=== PATIENT | male | born 1945 | race Caucasian/White ===

== ENCOUNTER 2018-10-27 08:39 | Inpatient (IN) | payer OTHER ==
[2018-10-13 09:21] LABS: URINE BILIRUBIN NEGATIVE (Negative); URINE BLOOD NEGATIVE (Negative); URINE CLARITY CLEAR; URINE COLOR YELLOW; URINE GLUCOSE-RANDOM* NEGATIVE (Negative); URINE KETONES NEGATIVE (Negative); URINE LEUKOCYTES-REFLEX NEGATIVE (Negative); URINE NITRITE-REFLEX NEGATIVE (Negative); URINE PROTEIN (DIPSTICK) NEGATIVE (Negative); URINE SPECIFIC GRAVITY <= 1.005 (1.005-1.035); URINE UROBILINOGEN 0.2 E.U./dl (0.2-1.0)
[2018-10-13 09:23] LABS: HEMOGLOBIN 14.5 gm/dL (14.0-18.0); MCHC 34.5 g/dL (28.0-37.0); MCV 89.9 fL (80.0-100.0); RBC 4.67 mil/uL (4.50-6.00); RDW 13.7 % (10.5-14.5); WBC 4.3 thou/uL (4.0-11.0)
[2018-10-13 09:28] LABS: ALBUMIN 4.1 g/dL (3.4-5.0); CALCIUM 9.1 mg/dL (8.5-10.1); CREATININE 0.7 mg/dL (0.7-1.3); POTASSIUM 4.6 mmol/L (3.5-5.1)
[2018-10-13 09:33] LABS: PROTIME 10.4 Seconds (9.3-11.4)
[2018-10-14 00:09] LABS: GLYCOHEMOGLOBIN (HGB A1C) 6.4 % (4.8-5.6)
--- NOTE | 2018-10-14 08:30 | EKG ---
[address] [address] ELECTROCARDIOGRAM REPORT Name: JACOB MCNAMARA Room #: [facility]#: [id number] ������������������ Admission: ������������������ Attend Phys: Harvey Araujo MD Discharge: ������������������ Date of : 47 Report #: [id number] ����������������������������������������������������������������� [id number] THIS REPORT FOR: //name// [facility] Test Date: 2018-10-13 Test Time: 09:19:49 Pat Name: JACOB MCNAMARA Department: Room: Gender: Beater Out: jesús : 1945 Requested By: Harvey Araujo Order Number: [id number] : Derrick Ayala Measurements Intervals Harrison Rate: 57 P: 61 VA: 175 QRS: 71 QRSD: 101 T: 61 QT: 424 QTc: 413 Interpretive Statements Sinus rhythm Abnormal R-wave progression, early transition No previous ECG available for comparison Electronically Signed On 10-14-2018 8:30:06 CDT by Derrick Ayala [email or web address] ��������������������������������������������� <ELECTRONICALLY SIGNED> ���������������������������������������� By: Derrick Ayala MD ��������������������������������������������� 10/14/18829 8 8 Derrick Ayala MD /DARCIE
[~2018-10-27] VITALS: Ht 177.8 cm; Wt 70.0 kg
--- NOTE | ~2018-10-27 | O ---
[facility] [place] [address] OPERATIVE REPORT Name: JACOB MCNAMARA Ange Room #: 422-P [facility] IN M.R.#: [id number] Admission: 10/27/18 ������������������ Attend Phys: Harvey Araujo MD Discharge: ������������������ Date of : 47 Report #: [id number] THIS REPORT FOR: //name// CC: Perez Araujo DATE OF SERVICE: 10/27/2018 PREOPERATIVE DIAGNOSIS: Right knee osteoarthritis. POSTOPERATIVE DIAGNOSIS: Right knee osteoarthritis. PROCEDURE: Right total knee arthroplasty using Navio robotic assistance. SURGEON: Harvey Araujo MD CIVIL DEFENSE DIRECTOR: Traci Mendoza PA-C. INDICATIONS FOR CIVIL DEFENSE DIRECTOR: Throughout the case, extensive retraction and manipulation of the knee was required. This was afforded to me by my medical office assistant instructor. ANESTHESIA: LMA with an adductor canal block. IMPLANTS: [employer] size 6 Legion cobalt chrome posterior stabilized femur, a size 5 tibia, size 11 highly constrained polyethylene and a size 35 patella. TOURNIQUET TIME: 68 minutes. ESTIMATED BLOOD LOSS: 25 mL. COMPLICATIONS: None. SPECIMENS: None. CONDITION UPON LEAVING THE OPERATING ROOM: Stable. INDICATIONS FOR PROCEDURE: The patient is a 73-year-old gentleman with severe right knee varus osteoarthritis. He had failed conservative measures for this and after discussion with him, he elected for right total knee arthroplasty. DESCRIPTION OF PROCEDURE: Risks, benefits, alternatives, complications were discussed in detail with the patient including, but not limited to risk of anesthesia, risk of damage to nerves, arteries, blood vessels, risk for infection, bleeding, risk for continued knee pain, need for reoperation. Informed consent was obtained from the patient. Right knee was appropriately [facility] [address] [place] [address] OPERATIVE REPORT Name: NAIMAJACOB Room #: 422-P ADM IN M.R.#: [id number] Admission: 10/27/18 ������������������ Attend Phys: Harvey Araujo MD Discharge: ������������������ Date of : 47 Report #: [id number] marked in the preoperative holding area. IV Ancef was given for preoperative antibiotics. He was brought to the operating room and placed in supine position on operating room table. LMA anesthesia was induced without complication. Tourniquet was placed on the right thigh. Right lower extremity was prepped and draped in normal sterile fashion. Timeout was performed properly identifying the patient and procedure as well as the instrumentation and implants. All in the operating room were in agreement. Right lower extremity was exsanguinated, tourniquet was inflated. Tourniquet time was 68 minutes. Standard midline approach to knee was made with 10 blade through the skin. Dissection was taken down sharply to the fascia and deep flaps were developed medially and laterally. A fresh #10 blade was used to make a medial parapatellar arthrotomy and the knee was inspected. There was severe tricompartmental osteoarthritis with significant medial tibial plateau erosion. Reference pins were placed in the tibia in the femur and the knee was digitally mapped using the Navio robotic system size 6 femur and a size 5 tibia with a size 11 spacer. After acceptance of the intraoperative plan, a distal femoral cut was made with a Navio bur. The 4-in-1 cutting block was placed. Anterior, posterior and chamfer cuts were made. Attention was turned to the tibia. The remainder of the menisci removed with Bovie cautery and tibial resection guide was pinned in place using the Navio for placement. Tibial resection was made and the tibia was sized, found to be a size 5. A size 5 tibial trial was placed, pinned and punched. A size 6 femoral trial was placed and the box cut was made. This was then trialed with a size 11 polyethylene, had good balance medially throughout range of motion, but was loose laterally secondary to his severe varus deformity. It was decided to trial a highly constrained polyethylene and this balanced the knee well. A 9 mm was taken off the posterior surface of the patella and a size 35 patellar trial button was placed. Knee was taken through range of motion, found to be stable, found to have good patellar tracking. After this, trial components were removed. Bony ends were thoroughly irrigated with normal saline. A final size 5 tibia, size 6 Legion cobalt chrome posterior stabilized femur and a size 35 patella were cemented in place using standard cementation techniques. While the cement cured, a periarticular injection consisting of morphine, ropivacaine, epinephrine and Toradol was placed around the knee joint capsule. After the cement cured, the tourniquet was deflated. Hemostasis was obtained with Bovie cautery. A final size 11 highly constrained polyethylene was placed. A gram of vancomycin was placed deep in the joint. Fascia was closed with 0 Vicryl, skin was closed with 2-0 Vicryl, 3-0 Monocryl. Dermabond and a ALFREDO dressing was applied. The patient tolerated this procedure well and went to the recovery room under the care of anesthesia postoperatively. ��������������������������������������������� ���������������������������������������� By: ��������������������������������������������� [id number] Harvey Araujo MD /nt
[~2018-10-27 08:39] MED LIST: ALPHA LIPOIC A100 MG PO; BOOST PO; CO Q-10100 MG PO; MAGOX 400400 MG PO; MSM-GLUCOSAMIN1 EACH PO; TYLENOL325 MG PO
[2018-10-27 13:44] VITALS: BP 138/84
[2018-10-27 18:15] VITALS: BP 121/63
[2018-10-27 19:11] VITALS: BP 125/75
--- NOTE | 2018-10-27 19:31 | NUR ---
Pt up to unit approx 1745. Dressing on rt knee clean and intact. DELTA hose in place. Pt denies pain. IVF infusing. Stable vital sings. Tolerates food well. Polar pack in place. Fall precautions in place. Report given to bhargav núñez.
--- NOTE | 2018-10-28 02:41 | NUR ---
ASSUMED PT CARE 1899. PT ALERT AND ORIENTED. REASSESSMENT COMPLETE. VSS. JULIA PAIN, JULIA N/V. WALKED TO BATHROOM TO URINATE. REPORTS TINGLING IN R FOOT. CALL LIGHT AND PERSONAL BELONIGNS WITHIN REACH, WILL CONTINUE POC UNITL EOS.
[2018-10-28 04:01] VITALS: BP 132/72
[2018-10-28 05:41] LABS: HEMOGLOBIN 12.3 gm/dL (14.0-18.0); MCH 31.6 pg (26.0-34.0); MCHC 34.1 g/dL (28.0-37.0); MCV 92.5 fL (80.0-100.0); RBC 3.89 mil/uL (4.50-6.00); RDW 13.2 % (10.5-14.5); WBC 10.4 thou/uL (4.0-11.0)
[2018-10-28 07:15] VITALS: BP 117/66
[2018-10-28] MEDS ORDERED: NEURONTIN 300300 M1 PO (09:54)
[2018-10-28] MEDS ORDERED: ASPIR 8181 MG PO (09:54)
--- NOTE | 2018-10-28 12:12 | NUR ---
PT A&OX4, IV IN L FA INTACT INFUSING SECOND BAG OF FLUIDS. AMBULATES WITH WALKER AND ASSIST X1. SPOUSE AT BEDSIDE. PT IS FEELING NO PAIN AT THIS TIME AND REFUSES TO TAKE SCHEDULED NORCO. PT WILL DC AFTER PT TODAY.
[2018-10-28 13:57] VITALS: BP 117/66
--- NOTE | 2018-10-28 15:11 | NUR ---
DC ORDERS RECEIVED. IV REMOVED FROM L FA. DC INSTRUCTIONS, SCRIPTS AND FOLLOW UP APPOINT REVIEWED WITH PT. MANAGER OF [employer] SALES WHEELED PT TO MAIN ENTRANCE.
== END 2018-10-28 15:06 | disposition home or self-care (01) | DRG 470 ==
LOC: PRE 08:39 → TBA 12:48 → 4E 12:48 → PRE 13:22 → 4E 17:48 → ENTRNSPT 10-28 15:00 → EDTRNSPTSTS 10-28 15:04 → 4E 10-28 15:06
PROVIDERS: ADMIT Orthopaedic Surgery
PROC: 8E0Y0CZ Robotic Assisted Procedure of Lower Extremity, Open Approach (ICD-10-PCS; principal; 2018-10-27)
PROC: 0SRC0J9 Replacement of Right Knee Joint with Synthetic Substitute, Cemented, Open Approach (ICD-10-PCS; principal; 2018-10-27)
DX: M17.11 Unilateral primary osteoarthritis, right knee (principal); Z88.6 Allergy status to analgesic agent; E11.9 Type 2 diabetes mellitus without complications; Z79.899 Other long term (current) drug therapy
CPT/HCPCS: 10783; 50010; 50101; 50382; 50415; 50954; 51130; 51225; 51320; 51771; 52001; 52282; 53078; 53364; 54118; 56527; 56528; 57095; 57103; 57104; 57110; 57119; 57127; 57179; 62110; 62900; 64043; 65060; 70005